=== PATIENT | female | born 1960 | race Caucasian/White ===

== ENCOUNTER 2023-01-15 14:10 | Emergency (ER) | payer OTHER, SELFPAY ==
[2023-01-15 14:15] VITALS: BP 137/62; PULSE 71; RESP 16; TEMP 36.9; O2SAT 98; BMI 29.0
--- NOTE | 2023-01-15 14:19 | DI.RAD.S_ITS ---
PROCEDURE: XR ANKLE RT MIN 3V INDICATIONS: fall, pain TECHNIQUE: 3 views of the ankle were acquired. COMPARISON: None. FINDINGS: Bones: Spiral fracture with minimal displacement of the distal fibula. No widening of the syndesmosis. Tibiotalar joint space is maintained. Soft tissues: Lateral malleolar edema. IMPRESSION: Minimally displaced spiral fracture of the distal fibula. Dictated by: Deisy Prieto M.D. on 01/15/2023 at 14:36 Approved by: Deisy Prieto M.D. on 01/15/2023 at 14:36
[2023-01-15 14:48] VITALS: BP 127/74; PULSE 71; RESP 16; O2SAT 97
--- NOTE | 2023-01-15 15:13 | ED_ITS ---
HPI - Extremity Injury (Lower) <Harrison Donovan PA-C - Last Filed: 01/15/23 15:45> General Chief Complaint: Extremity Injury, Lower Stated Complaint: poss broken RT ankle Time Seen by Provider: 01/15/23 14:44 Source: patient Mode of arrival: Ambulatory History of Present Illness HPI Narrative: This is a 62-year-old female presents emergency department complaining of right ankle pain after tripping over some gravel just prior to arrival. She states she is primarily having pain to her right lateral ankle. Denies any numbness or denies any injuries to her knee, foot, or any other parts of her body. Related Data Previous Rx's Medication Instructions Recorded ondansetron 4 mg disintegrating 4 mg PO Q8H PRN nausea and 01/15/23 tablet vomiting #20 tabs ondansetron 4 mg oral soluble film 4 mg PO Q8H PRN nausea and 01/15/23 vomiting #30 ea oxycodone 5 mg capsule 5 mg PO Q8H PRN pain #20 caps 01/15/23 oxycodone 5 mg capsule 5 mg PO TID PRN pain #20 caps 01/15/23 Allergies Allergy/AdvReac Type Severity Reaction Status Date / Time No Known Drug Allergies Allergy Verified 01/15/23 14:18 Review of Systems <MECHE Aguilar Last Filed: 01/15/23 15:45> Review of Systems Narrative: GENERAL: Denies chills, fatigue, malaise, fever, sweats. HEENT: Denies sinus pain, ear pain, sore throat, difficulty swallowing, dizziness. RESPIRATORY: Denies dyspnea, cough, wheezing, hemoptysis, sputum. CARDIOVASCULAR: Denies chest pain, palpitations, orthopnea, edema, GASTROINTESTINAL: Denies nausea, vomiting, abdominal pain, diarrhea, constipation, melena. : Denies dysuria, frequency, incontinence, hematuria, urinary retention. MUSCULOSKELETAL: Reports right ankle pain SKIN: Denies rash, skin lesions, or other NEUROLOGIC: Denies weakness, headache, numbness, change in speech, confusion, seizures, incoordination. PSYCHIATRIC: No concerning psychosocial issues. 12 point review of systems is negative except for those stated above Patient History <MECHE Aguilar Last Filed: 01/15/23 15:45> Social History Smoking Status: Never smoker Smoking Status: Never smoker alcohol intake frequency: 0-2 drinks per day Substance Use Type: does not use Exam <MECHE Aguilar Last Filed: 01/15/23 15:45> Narrative Exam Narrative: GENERAL: Well-developed patient, in mild distress. HEAD: Atraumatic. Normocephalic. EYES: Pupils equal round and reactive. Extraocular motions intact. No scleral icterus. No injection or drainage. ENT: Nose without bleeding, purulent drainage. Throat without erythema, tonsillar hypertrophy or exudate. Airway patent. NECK: Trachea midline. Non tender EXTREMITIES: Moderate tenderness to palpation to the right lateral malleolus. Neurovascularly intact throughout. Range of motion decreased secondary to pain. BACK: Nontender without deformity or crepitance. No flank tenderness. NEURO: AOx3. SKIN: No rash or erythema of visible areas Initial Vital Signs Initial Vital Signs: Vital Signs Temperature 98.4 F 01/15/23 14:15 Pulse Rate 71 01/15/23 14:15 Respiratory Rate 16 01/15/23 14:15 Blood Pressure 137/62 01/15/23 14:15 Pulse Oximetry 98 01/15/23 14:15 Oxygen Delivery Method Room Air 01/15/23 14:15 <Sage Amezquita DO - Last Filed: 01/20/23 04:20> Initial Vital Signs Initial Vital Signs: Vital Signs Temperature 98.4 F 01/15/23 14:15 Pulse Rate 71 01/15/23 14:15 Respiratory Rate 16 01/15/23 14:15 Blood Pressure 137/62 01/15/23 14:15 Pulse Oximetry 98 01/15/23 14:15 Oxygen Delivery Method Room Air 01/15/23 14:15 Procedures <MECHE Aguilar Last Filed: 01/15/23 15:45> Orthopedic Splinting/Casting Injury #1: Time of procedure: 15:45 Side: right Lower Extremity Injury Location: ankle Lower Extremity Immobilizer: posterior splint and stirrup splint Post splinting neuro exam: intact Post splinting vascular exam: intact Placed by: Nursing Course <MECHE Aguilar Last Filed: 01/15/23 15:45> Orders Ordered: ED Orders 01/15/23 14:19 XR ankle RT min 3V Stat Vital Signs Vital signs: Vital Signs - 8 hr 01/15/23 14:15 01/15/23 14:48 Temperature 98.4 F Pulse Rate 71 71 Respiratory Rate 16 16 Blood Pressure 137/62 127/74 Pulse Oximetry 98 97 Oxygen Delivery Method Room Air Room Air <Sage Amezquita DO - Last Filed: 01/20/23 04:20> Orders Ordered: ED Orders 01/15/23 14:19 XR ankle RT min 3V Stat Vital Signs Vital signs: Vital Signs - 8 hr 01/15/23 14:15 01/15/23 14:48 Temperature 98.4 F Pulse Rate 71 71 Respiratory Rate 16 16 Blood Pressure 137/62 127/74 Pulse Oximetry 98 97 Oxygen Delivery Method Room Air Room Air MDM - Extremity Injury (Lower) <Harrison Donovan PA-C - Last Filed: 01/15/23 15:45> Imaging Data Extremity x-ray #1: Radiologist's Impression: [address] [id number] ReportSigned Patient: Bernarda Malcolm EMR#: [id number]: [id number]:[id number]/Sex: 62 / FDate of Service: 01/15/23Loc: EDAccession Number: [id number] Procedure: XR ankle RT min 3V Ordering Provider: Sage Amezquita D.O. PROCEDURE: XR ANKLE RT MIN 3V INDICATIONS: fall, pain TECHNIQUE: 3 views of the ankle were acquired. COMPARISON: None. FINDINGS: Bones: Spiral fracture with minimal displacement of the distal fibula. No widening of the syndesmosis. Tibiotalar joint space is maintained. Soft tissues: Lateral malleolar edema. IMPRESSION: Minimally displaced spiral fracture of the distal fibula. Dictated by: Deisy Prieto M.D. on 01/15/2023 at 14:36 Approved by: Deisy Prieto M.D. on 01/15/2023 at 14:36 MDM Narrative Medical decision making narrative: MDM * differential diagnosis includes but not limited to right fibula fracture, right tibia fracture, foot fracture, neurovascular injury, soft tissue injury, ankle sprain * Prior records reviewed: Patient has not been here for similar complaints in the past. * My lab interpretation: None obtained * My imgaing interpretation: X-ray shows a spiral fracture of the right distal fibula. Does not affect the syndesmosis. * Clinical Decision Rules/Scores evaluated: None * Independent discussions with: None ED Course: This is a 62-year-old female presents emergency department due to a right distal fibula fracture. She was neurovascularly intact throughout. She was placed in a posterior short-leg splint with stirrups recommended he be nonweightbearing and recommended follow up with orthopedist. Shared Decision Making: Discussed plan the patient is comfortable with the plan. Social Considerations: None Disposition: Discharged to home Discharge Plan Departure Patient Disposition: Home Clinical Impression: Ankle fracture Instructions: DI for Fracture Activity Restrictions/Additional Instructions: Thank you for coming to the [facility] Emergency Department today. As discussed you have the fracture to your right fibula near ankle. Please remain nonweightbearing and follow up with orthopedist who is information is provided. Please call the office tomorrow to schedule an appointment. I recommend using Tylenol and ibuprofen as needed for the pain but you may use the oxycodone prescribed for any breakthrough pain. I hope you feel better soon. Prescriptions: New oxycodone 5 mg capsule 5 mg PO Q8H PRN (Reason: pain) Qty: 20 0RF ondansetron 4 mg film 4 mg PO Q8H PRN (Reason: nausea and vomiting) Qty: 30 0RF oxycodone 5 mg capsule 5 mg PO TID PRN (Reason: pain) Qty: 20 0RF ondansetron 4 mg tablet,disintegrating 4 mg PO Q8H PRN (Reason: nausea and vomiting) Qty: 20 0RF Referrals: Nae Zarco MD [Physician] - (f/u distal R fibula spiral fracture ) Miscellmika,MD Kelby [Primary Care Provider] - Stand Alone Forms: Patient Portal/API <Sage Amezquita DO - Last Filed: 01/20/23 04:20> Cosign ED Attending Jordanature Attestation: I was immediately available in the department for consultation. Documentation has been reviewed. I agree with assessment and plan.
== END 2023-01-15 15:24 | disposition home or self-care (01) ==
PROVIDERS: Emergency Provider Physician Assistant Medical
DX: S82.61XA Displaced fracture of lateral malleolus of right fibula, initial encounter for closed fracture (principal); W18.40XA Slipping, tripping and stumbling without falling, unspecified, initial encounter
CPT/HCPCS: 73610; 99282; 99283